=== PATIENT | female | born 1975 | race Caucasian/White ===

== ENCOUNTER 2022-08-16 14:26 | Emergency (ER) | payer OTHER ==
[~2022-08-16] VITALS: Ht 165.1 cm; Wt 60.8 kg
[2022-08-16] MEDS ORDERED: SYMBICORT 80/10.2 GM IH (14:47)
== END 2022-08-16 18:28 | disposition home or self-care (01) ==
LOC: ER 14:26
DX: L50.8 Other urticaria (principal)